=== PATIENT | male | born 1960 ===

== ENCOUNTER → 2017-05-18 | Outpatient (CLI) | payer BC ==
[~2017-05-18] MED LIST: APIX1TAB3 PO; DILT240C74 PO; TPRSR/50 PO
[2017-05-18 13:01] LABS: BASO % 0.6 %; BASO ABS # 0.04 K/uL (0-0.2); COMPLETE YES; EOS % 3.3 %; IG% 0.5 %; LYMPH % 32.1 %; LYMPH ABS # 2.02 K/uL (1.2-3.4); MEAN CELL VOLUME 90.4 fL (80-100); MEAN CORPUSCULAR HEMOGLOBIN 31.7 pg (25-34); MEAN CORPUSCULAR HGB CONC 35.1 g/dl (32-36); MEAN PLATELET VOLUME 10.5 fL (7.4-10.4); MONO % 10.8 %; NEUT % 52.7 %; PLATELET COUNT 223 K/uL (130-400); RED BLOOD COUNT 4.98 M/uL (4.7-6.1)
[2017-05-18 13:54] LABS: ALT/SGPT 42 U/L (12-78); BLOOD UREA NITROGEN 14 mg/dl (7-18); BUN/CREATININE RATIO 13.2 (10-20); CALCIUM 8.9 mg/dl (8.5-10.1); CARBON DIOXIDE 25 mmol/L (21-32); CHLORIDE 108 mmol/L (98-107); CHOLESTEROL 144 mg/dl (0-200); CREATININE 1.07 mg/dl (0.60-1.40); GLUCOSE 97 mg/dl (70-99); POTASSIUM 4.2 mmol/L (3.5-5.1); SODIUM 141 mmol/L (136-145)
[2017-05-18 13:59] LABS: ALB/GLOB RATIO 1.2 (0.9-2); ALKALINE PHOSPHATASE 91 U/L (45-117); AST/SGOT 23 U/L (15-37); CHOLESTEROL/HDL RATIO 3.3; HDL CHOLESTEROL 43 mg/dl; LDL CHOLESTEROL CALCULATED 78 mg/dl; TRIGLYCERIDES 114 mg/dl (0-150); VERY LOW DENSITY LIPOPROT CALC 23 mg/dl
== END | disposition home or self-care (01) ==
LOC: C.LABSPEC 12:27
PROVIDERS: ATTEND Family Medicine
DX: E78.2 Mixed hyperlipidemia (principal); Z12.5 Encounter for screening for malignant neoplasm of prostate; I48.2 Chronic atrial fibrillation

== ENCOUNTER 2022-01-02 05:15 | Observation (INO) ==
--- NOTE | 2021-12-04 13:52 | PAT Medication Instructions ---
Medication Instructions Date of Service December 04, 2021 Home Medications Medication Instructions Recorded apixaban 5 mg tablet (Eliquis) 5 mg PO BID #180 tab 11/03/21 pravastatin 80 mg tablet 80 mg PO QPM apixaban 5 mg tablet (Eliquis) 5 mg PO BID diltiazem HCl 360 mg capsule,extended release 24 hr 360 mg PO QAM metoprolol succinate 100 mg tablet,extended release 24 hr 100 mg PO QAM ASK your prescriber and surgeon apixaban 5 mg tablet (Eliquis) 5 mg PO BID (in order for spinal anesthesia, Apixaban/Eliquis needs to be stopped 72 hours before surgery. Please check if okay with doctor that prescribes this to you) Take morning of surgery With a small sip of water, OTHERWISE NOTHING TO EAT OR DRINK AFTER MIDNIGHT: diltiazem HCl 360 mg capsule,extended release 24 hr 360 mg PO QAM metoprolol succinate 100 mg tablet,extended release 24 hr 100 mg PO QAM Take evening before surgery pravastatin 80 mg tablet 80 mg PO QPM Other Notes If you have any questions please call us at [phone] or [phone] or [phone] or [phone]
--- NOTE | 2021-12-08 08:58 | Anesthesiology Consultation ---
Date of Service December 08, 2021 Assessment & Plan (1) Encounter for pre-operative examination: - Case discussed in detail with Dr. Rick including abnormal pre-op EKG and new changes vs 2014 ECG. He advised nothing further is needed prior to surgery and pt is acceptable risk to proceed. - cardiology 01/21/21 [place]: "...Chronic and permanent atrial fibrillation. Controlled ventricular response...remains asymptomatic. Chronic anticoagulation with apixaban. No bleeding complaints on it...Moderate mitral regurgitation. No signs or symptoms heart failure. Most recent echo with moderate MR, normal LV size, nl LV systolic function, and nl est right heart pressures. Echocardiogram last year with normal LV size and systolic function...yearly echocardiogram. Reassess mitral regurgitation, LV size, LV systolic function. Will perform at [facility]...Follow-up visit with me in 1 year..." - COVID screening: Per assessment on 12/08/2021: Travel screen negative, no known COVID-19 positive contacts or current COVID-19 related symptoms in past 2 weeks. Pt vaccinated. Surgeon arranging preop COVID testing, scheduled 12/31/2021. Awaiting results. Chart Review Chart Review: Acceptable Risk for Surgery and Patient seen in Pre Admission Testing Teaching & Discussion Pre-Anesthesia Teaching/Discussion Notes: Instructed NPO after midnight before surgery, except medications with 15 cc of water. Medication instructions provided according to the PAT guidelines. History Surgery Operation Date: 01/02/22 09:20 Proposed Procedures p Left Anterior Total Hip Arthroplasty - Nicholas Hensley, Height/Weight Height: 6 ft 2 in Weight: 115.5 kg Allergies Allergy/AdvReac Type Severity Reaction Status Date / Time No Known Drug Allergies Allergy Verified 12/04/21 11:55 Medications Home Medications Medication Instructions Recorded Confirmed Last Taken pravastatin 80 mg tablet 80 mg PO QPM 04/25/19 12/04/21 Unknown apixaban 5 mg tablet (Eliquis) 5 mg PO BID #180 tab 11/03/21 12/04/21 Unknown diltiazem HCl 360 mg 360 mg PO QAM 12/04/21 12/04/21 Unknown capsule,extended release 24 hr metoprolol succinate 100 mg 100 mg PO QAM 12/04/21 12/04/21 Unknown tablet,extended release 24 hr Past Medical History Medical History (Updated 12/08/21 @ 09:35 by Candace Adair PA-C) Chronic anticoagulation due to atrial fib Chronic atrial fibrillation dx 8 yrs ago follow with dr Dunlap Dyslipidemia Moderate mitral regurgitation follows with Dr. Dunlap Patient denies h/o stroke, seizures, heart attack, heart failure, DM, HTN, blood clots or blood transfusions. Exercise / Class Metabolic Activity II 4-5 Yardwork/Stairs/Walk up hill (denies CP or SOB with 1 FOS) Past Surgical History Surgical History Hx of colonoscopy Hx of left inguinal hernia repair Hx of right inguinal hernia repair Past Anesthesia History No Hx of Anesthesia Complications and No Family Hx of Anesthesia Complications History of PONV No Hx of PONV and No Hx of Motion Sickness Social History Smoking Status: Never smoker Do You Dip or Chew Tobacco: No Hx Alcohol Use: No Hx Substance Use: No substance use type: does not use Review of Systems Patient denies chest pain, shortness of breath, dyspnea on exertion, snoring, witnessed apneas, reflux, fever, chills, cough, wheezing, or palpitations. Physical Exam Vital Signs Vitals BP 121/84 P 86 TEMP 97.6 SP02 98% on RA RESP 17 Physical Full cervical extension range of motion without pain TMD 3.5 finger breaths Dentition: intact, denies missing, chipped or loose teeth, caps/crowns, implants or bridges Lungs: normal respiratory effort. Clear throughout to auscultation, no adventitious breath sounds Cardiac: regular rate and rhythm, no murmurs noted Carotid arteries: negative bruit bilat Lab Results Anesthesia Preop Results Results Anesthesia Widget: WBC 5.83 K/uL (4.8-10.8) 12/08/21 Hgb 15.2 g/dL (14.0-18.0) 12/08/21 Hct 43.8 % (42-52) 12/08/21 Plt 246 K/uL (130-400) 12/08/21 Na 141 mmol/L (136-145) 12/08/21 K 4.5 mmol/L (3.5-5.1) 12/08/21 Cl 109 mmol/L (98-107) H 12/08/21 CO2 26 mmol/L (21-32) 12/08/21 BUN 17 mg/dl (6-23) 12/08/21 Creat 0.96 mg/dl (0.6-1.4) 12/08/21 Glucose Level 103 mg/dl (70-99(Fasting)) H 12/08/21 PT 11.2 Seconds (9.0-12.0) 12/08/21 PTT 29.6 Seconds (21.0-31.0) 12/08/21 INR 1.1 (0.9-1.1) 12/08/21 Blood Type O Positive 12/08/21 Antibody Screen NEGATIVE 12/08/21 Testing Electrocardiogram Date: 12/08/21 Atrial fibrillation, rate 77 bpm Inferior infarct, age undetermined Inferior infarct now present vs 02/02/2014 ECG Chest X-Ray Date: 12/08/21 Frontal and lateral radiographs of the chest demonstrate the cardiomediastinal silhouette to be within normal limits. The lungs are clear of alveolar opacities. There is no evidence for effusion bilaterally. There is no evidence for vascular congestion. There is no acute osseous pathology. IMPRESSION: 1. No acute cardiopulmonary disease. Echocardiogram Date: 01/24/21 EF 60-65% No regional wall motion abnormalities Biatrial dilatation Mild cLVH Moderate mitral regurgitation Mild tricuspid regurgitation Normal estimated right heart pressures
--- NOTE | 2022-01-01 07:35 | History & Physical Report ---
Date of Service January 01, 2022 Assessment & Plan (1) Osteoarthritis of left hip: We will proceed with a left anterior total of arthroplasty. Postoperatively he will be started on Eliquis for DVT prophylaxis and kept overnight in the hospital for postop medical management. He plans to have the hospital set up home health upon discharge. History of Present Illness Chief Complaint: Osteoarthritis of the left hip. Primary Care Provider: Tyrese Gabriel DO Rob is apleasant 61-year-old male who I saw in the past and diagnosed with osteoarthritis of his left hip. He had an intra-articular hip injection. It did help some. Unfortunately, his symptoms have continued to worsen. He is having trouble walking. He is having trouble gettingin and out of his car and putting on shoes. After failing conservative treatment, he has elected proceed with a left anterior total hip arthroplasty. Allergies Allergy/AdvReac Type Severity Reaction Status Date / Time No Known Drug Allergies Allergy Verified 12/04/21 11:55 Home Medications Medication Instructions Recorded Confirmed Type pravastatin 80 mg tablet 80 mg PO QPM 04/25/19 12/04/21 History apixaban 5 mg tablet (Eliquis) 5 mg PO BID #180 tabs 11/03/21 12/04/21 Rx diltiazem HCl 360 mg 360 mg PO QAM 12/04/21 12/04/21 History capsule,extended release 24 hr metoprolol succinate 100 mg 100 mg PO QAM 12/04/21 12/04/21 History tablet,extended release 24 hr Past Med/Surg History Medical History Chronic anticoagulation due to atrial fib Chronic atrial fibrillation dx 8 yrs ago follow with dr Dunlap Dyslipidemia Moderate mitral regurgitation follows with Dr. 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 Physical Exam On physical examination of the left hip, he walks with an antalgic gait. He has decreased range of motion and pain with forced internal and external rotation.. Constitutional WD/WN, vitals as above Respiratory normal respiratory effort, lungs clear to auscultation Cardiovascular RRR, no murmur, no edema Neurologic patellar DTR's 2+ bilat, sensation intact Results & Data Results & Data Laboratory Results . Diagnostic Findings X-rays of the left hip show advanced osteoarthritis with joint space narrowing osteophyte formation and [id number] articulation.. PG Care Time/CCT Total # of Minutes Spent Total Time Spent with Patient: Total time spent is greater than 50% in coordination of care (as documented) at patient's floor/unit and/or counseling patient: Coding Level of Care Code None Diagnoses Osteoarthritis of left hip M16.12
[~2022-01-02 05:15] MED LIST changes: -APIX1TAB3 PO; -DILT240C74 PO; +Ketorolac (*for OR use only*) 30 MG, dexAMETHasone 4 MG, KETAMINE HCL (**OR use only) 1... INFIL SCH; -TPRSR/50 PO
[2022-01-02] MEDS ORDERED: BUPIVACAINE LIPOSOME/PF 266 MG, BUPIVACAINE/EPINEPHRINE 50 ML, SODIUM CHLORIDE 0.9% 30 ... INFIL SCH (06:00)
[2022-01-02] MEDS ORDERED: TRANEXAMIC ACID 1,000 MG **IV Pre-op IV SCH (06:00)
[2022-01-02] MEDS ORDERED: ceFAZolin 2000MG 2,000 MG/15 ML SYR IV SCH (06:00)
[2022-01-02] MEDS ORDERED: LR 500ML BOLUS, THEN 15ML/HR IV SCH (06:00)
[2022-01-02] MEDS ORDERED: LR 60ML/HR IV SCH (06:00)
[2022-01-02] MEDS ORDERED: TRANEXAMIC ACID 1,000 MG **IV Intra-op IV SCH (06:00)
[2022-01-02] MEDS ORDERED: GABAPENTIN 600 MG DOSE PO SCH (06:00)
[2022-01-02] MEDS ORDERED: Ketorolac (*for OR use only*) 30 MG, dexAMETHasone 4 MG, KETAMINE HCL (**OR use only) 1... INFIL SCH (06:00)
[2022-01-02] MEDS ORDERED: ACETAMINOPHEN 500 MG TAB PO SCH (06:00)
[2022-01-02] MEDS ORDERED: BUPIVACAINE 0.5 % 5 MG/1 ML PF 10ML VIAL ONE (06:35)
[2022-01-02] MEDS ORDERED: ONDANSETRON INJ 2 MG/ML 2 ML VIAL ONE (06:36)
[2022-01-02] MEDS ORDERED: MIDAZOLAM HCL 1 MG/ML 2ML VIAL ONE (06:36)
[2022-01-02] MEDS ORDERED: LIDOCAINE 2% 20 MG/ML 5 ML SYR IV ONE (06:36)
[2022-01-02] MEDS ORDERED: PROPOFOL IV EMULSION 10 MG/ML 20 ML VIAL IV ONE ×2 (06:36→08:16)
[2022-01-02] MEDS ORDERED: LIDOCAINE 2% MPF LOCAL 5 ML VIAL INFIL ONE (06:36)
[2022-01-02] MEDS ORDERED: ePHEDrine sulfate 50 MG/ML AMP IV PRN (06:39)
[2022-01-02] MEDS ORDERED: fentaNYL citrate 100 MCG/2 ML VIAL IV PRN (06:39)
[2022-01-02] MEDS ORDERED: ONDANSETRON INJ 2 MG/ML 2 ML VIAL IV PRN ×2 (06:39→11:08)
[2022-01-02] MEDS ORDERED: ATROPINE SULFATE 0.1 MG/ML 10ML SYR IV PRN (06:39)
[2022-01-02] MEDS ORDERED: fentaNYL citrate 100 MCG/2 ML VIAL ONE (06:41)
--- NOTE | 2022-01-02 06:42 | History & Physical Bridge Note ---
Date of Service January 02, 2022 History & Physical Bridge Note I have examined the patient, reviewed the History & Physical and in the interval since the performance of the History & Physical I have noted the following changes of clinical significance: no changes noted
[2022-01-02] MEDS ORDERED: ORTHO JOINT ANESTHETIC ONE (06:48)
[2022-01-02] MEDS ORDERED: ePHEDrine sulfate 50 MG/ML AMP ONE (08:07)
[2022-01-02] MEDS ORDERED: PHENYLEPHRINE 100MCG/ML 5ML SYR ONE (08:07)
[2022-01-02] MEDS ORDERED: PHENYLEPHRINE HCL 10 MG/ML VIAL ONE (08:07)
--- NOTE | 2022-01-02 08:17 | Operative Report ---
PG Post Operative Report Pre & Post Diagnosis Operation Date: 01/02/22 07:00 Pre-Op Diagnosis: Degenerative Joint Disease Left Hip Post-Op Diagnosis: Degenerative Joint Disease Left Hip I identified the patient and participated in the time-out.: Yes Procedure Operation Date: 01/02/22 07:00 Actual Procedures p Left Anterior Total Hip Arthroplasty(Left) - Nicholas Hensley DO Surgeon Nicholas Hensley DO Speed Reading Teacher Nicholas Diane PA-C Estimated Blood Loss 300 Findings Consistent with Post-Op Diagnosis As above Specimens None Description of Procedure Implants used I used a ZimmerBiomet total hip arthroplasty system with a size 6 high offset Avenir Complete stem, a 54 mm G7 cup with a 25mm screw, an E1 polyethylene liner, a 40 mm ceramic head with a +3.5 neck. Rob arrived at the hospital for the above procedure. He was seen in the preoperative holding area and the operative extremity was identified and signed. He was given a spinal anesthetic, a preoperative antibiotic, and TXA. He was then taken back to the operating room and laid on the table in the supine position. He was given basic sedation. The operative leg was secured to a Puristst leg positioner. The hip was then prepped and draped in sterile fashion. A timeout was done and the patient and the operative extremity was pr operly identified. An anterior approach was used. Dissection was taken down through the fascia and the tensor muscle belly was retracted laterally and the rectus was retracted medially. The circumflex vessels were identified and ligated. The capsule was then incised and tagged for later repair. The femoral neck was then cut and the femoral head was removed. The acetabulum was exposed. Time was spent doing a complete circumferential labral release. Sequential reaming of the acetabulum up to a size 53 reamer was done. Final reamings were done under fluoroscopy to ensure appropriate version. A Biomet 54 mm G7 cup was then impacted into place. A single 25 mm screw was placed. The E1 polyethylene liner was then snapped into place. Surrounding soft tissues were then injected with 100 cc of an orthopedic pain control cocktail. The proximal femur was then exposed. Sequential broaching up to a size 6 broach was done. Off that broach a size 40 head with a +3.5 neck was trialed. The hip was reduced and fluoroscopic images showed anatomic alignment of the implants in acceptable length. The broach was removed. The final size 6 high offset Avenir Complete stem was then impacted into place. A ceramic 40 mm head with a +3.5 neck was then impacted onto the stem and the hip was reduced. Final fluoroscopic images showed anatomic alignment of the hip. The capsule was then closed with #1 Vicryl suture. A dilute betadyne lavage was then done for 3 minutes. The joint was then irrigated with normal saline solution. The fascia was closed with #1 PDS suture. Skin was closed with 2-0 Vicryl, jade, and a Silverlon dressing. He was then transferred to a hospital bed and taken to the post anesthesia care unit in stable condition. He tolerated the procedure well. Nicholas Diane PA-C, was present for the entire procedure. He was critical for patient positioning, prepping, draping, retraction exposure, wound closure and application of sterile dressing. I attest to the content of the Intraoperative Record and any orders documented therein. Any exceptions are noted below.
--- NOTE | 2022-01-02 08:35 | Fluoroscopy Report ---
FL hip LT 1V CLINICAL HISTORY: Left anterior total hip arthroplasty COMPARISON STUDY: None. FLUOROSCOPY TIME: 23 seconds. FINDINGS: 2 fluoroscopic spot images of the left hip demonstrate a left total hip arthroplasty. The h ardware appears intact. No fracture or dislocation. IMPRESSION: Fluoroscopic assistance provided for left total hip arthroplasty. ACT 112: Negative or not required by law. Electronically signed by: Chandler Mejia M.D. 01/02/2022 8:34 AM
--- NOTE | 2022-01-02 09:44 | XRay Report ---
XR hip 1V LT w pelvis CLINICAL HISTORY: IN PACU - A/P PELVIS and LATERAL HIP TECHNIQUE: 2 views of the right hip and single frontal view of the pelvis were obtained. Comparison: Comparison is made to left hip radiograph 10/21/2021 FINDINGS: Patient is status post total hip arthroplasty with expected postsurgical changes including soft tissu e swelling, subcutaneous emphysema, and surgical staple placement. No periarticular lucency or hardwa re fracture is seen. A bone fragment lateral to the acetabulum is unchanged from prior exam. No perih ardware lucency or hardware fracture is seen. Phleboliths are noted in the pelvis. IMPRESSION: Expected postoperative appearance status post placement of total hip arthroplasty. ACT 112: Negative or not required by law. Electronically signed by: Chidi Houston M.D. 01/02/2022 9:42 AM
[2022-01-02] MEDS ORDERED: METOCLOPRAMIDE HCL INJ 5 MG/ML 2 ML VIAL IV PRN (11:08)
[2022-01-02] MEDS ORDERED: NALOXONE HCL 0.4 MG/1 ML VIAL/CARP IV PRN (11:08)
[2022-01-02] MEDS ORDERED: HYDROmorphone INJ 0.5 MG/0.5 ML SYR IV PRN (11:08)
[2022-01-02] MEDS ORDERED: MAGNESIUM HYDROXIDE SUSP 30 ML UDC PO PRN (11:08)
[2022-01-02] MEDS ORDERED: oxyCODONE HCL IR 5 MG TAB (IMMEDIATE RELEASE) PO PRN (11:08)
[2022-01-02] MEDS ORDERED: bisacodyL 10 MG SUPP PR PRN (11:08)
--- NOTE | 2022-01-02 11:20 | Anesthesiology Progress Note ---
Date of Service January 02, 2022 Anesthesia Post Procedure Vital Signs Vital Signs: Temp Pulse Pulse Resp BP BP Pulse Ox 01/02/22 11:00 97.5 F L 76 17 100/72 97 01/02/22 10:45 72 16 97/71 L 95 01/02/22 10:30 68 12 99/70 L 95 01/02/22 10:15 81 14 95/72 L 96 01/02/22 10:00 67 12 91/67 L 94 01/02/22 09:45 71 14 92/61 L 92 01/02/22 09:30 97.0 F L 77 14 98/59 L 97 01/02/22 09:20 76 16 96/68 L 96 01/02/22 09:10 67 15 90/55 L 95 01/02/22 09:00 66 17 94/53 L 92 01/02/22 08:50 81 18 90/60 L 98 01/02/22 08:40 98.4 F 83 14 91/65 L 97 01/02/22 05:39 98.2 F 83 18 127/83 95 O2 Del Method O2 Flow Rate 01/02/22 11:00 Room Air 01/02/22 10:45 Room Air 01/02/22 10:30 Room Air 01/02/22 10:15 Room Air 01/02/22 10:00 Room Air 01/02/22 09:45 Room Air 01/02/22 09:30 Room Air 01/02/22 09:20 Room Air 01/02/22 09:10 Room Air 01/02/22 09:00 Room Air 01/02/22 08:50 Oxymask 5 01/02/22 08:40 Oxymask 8 01/02/22 05:39 Room Air Pain Intensity Left Hip: Pain Intensity: 0 Transfer of Care Handoff Completed per policy Notes Mental Status: alert / awake / arousable and participated in evaluation Patient Amnestic to Procedure: Yes Nausea / Vomiting: adequately controlled Pain: adequately controlled Airway Patency, RR, SpO2: stable & adequate BP & HR: stable & adequate Hydration State: stable & adequate Neuraxial Anesthesia: was administered and sensory block is resolving Anesthetic Complications: no major complications apparent and Pt Satisfied with anesthetic care
[2022-01-02] MEDS: ASPIRIN 81 MG ECTAB PO SCH ×2 (14:07→21:06)
[2022-01-02] MEDS: DOCUSATE SODIUM 100 MG CAP PO SCH ×2 (14:09→21:06)
[2022-01-02] MEDS: dilTIAZem HCL 180 MG CAPCR PO SCH (14:09)
[2022-01-02] MEDS: KETOROLAC 30 MG/ML VIAL IV SCH ×3 (14:09→23:14)
[2022-01-02] MEDS: METOPROLOL SUCC 50MG EXT REL TAB PO SCH (14:10)
[2022-01-02] MEDS: MULTIVITAMIN TAB PO SCH (14:11)
[2022-01-02] MEDS: ACETAMINOPHEN 500 MG TAB PO SCH ×2 (14:12→21:06)
[2022-01-02] MEDS: ceFAZolin 2000MG 2,000 MG/15 ML SYR IV SCH ×2 (18:02→23:14)
[2022-01-02] MEDS: SODIUM CHLORIDE 0.9% 1000ML 1,000 ML IV SCH ×2 (19:09→21:07)
[2022-01-02] MEDS ORDERED: SENNA 8.6 MG TAB PO SCH (21:00)
[2022-01-02] MEDS ORDERED: PRAVASTATIN SOD 40 MG TAB PO SCH (21:00)
[2022-01-03] MEDS: KETOROLAC 30 MG/ML VIAL IV SCH ×2 (05:52→11:04)
[2022-01-03] MEDS: ACETAMINOPHEN 500 MG TAB PO SCH (05:52)
--- NOTE | 2022-01-03 06:50 | Orthopedic Progress Note ---
Date of Service January 03, 2022 Assessment & Plan (1) Status post left hip replacement: Overall is doing well. Is not any much pain in the left hip. He will be seen by physical therapy today for ambulation and range of motion exercises. He is on Eliquis for DVT prophylaxis. He can be discharged home later today. He will follow-up with orthopedics in 2 weeks. Rin Rivas was seen and examined at bedside this morning. Overall is doing very well. Is not having much pain in the left hip. He has been up and ambulating to the bathroom. He has no complaints.. Review of Systems All systems reviewed & are unremarkable except as noted in HPI & below. Physical Exam On physical examination of the left hip, the dressing is clean and dry. His leg is out full extension. He has active dorsiflexion plantarflexion of the left ankle.. Results & Data Results & Data Laboratory Results . Diagnostic Findings Postoperative x-rays of the left hip show the prosthesis to be in anatomic alignment without any evidence of fracture, desiccation, or loosening. PG Care Time/CCT Total # of Minutes Spent Total Time Spent with Patient: Total time spent is greater than 50% in coordination of care (as documented) at patient's floor/unit and/or counseling patient: Coding Level of Care Code 01617 Post Operative Follow-Up Diagnoses Status post left hip replacement Z96.642
--- NOTE | 2022-01-03 06:51 | Discharge Summary ---
Date of Service January 03, 2022 Admission HPI (Per Admitting) Rob is apleasant 61-year-old male who I saw in the past and diagnosed with osteoarthritis of his left hip. He had an intra-articular hip injection. It did help some. Unfortunately, his symptoms have continued to worsen. He is having trouble walking. He is having trouble gettingin and out of his car and putting on shoes. After failing conservative treatment, he has elected proceed with a left anterior total hip arthroplasty. Admission Exam (Per Admitting) On physical examination of the left hip, he walks with an antalgic gait. He has decreased range of motion and pain with forced internal and external rotation.. Principal Diagnosis Same as "Discharge Diagnosis" noted below under Discharge Instructions. Discharge Exam On physical examination of the left hip, the dressing is clean and dry. His leg is out full extension. He has active dorsiflexion plantarflexion of the left ankle.. Discharge Data Procedures Performed Operation Date: 01/02/22 07:00 Actual Procedures p Left Anterior Total Hip Arthroplasty(Left) - Nicholas Hensley DO Ordered Studies 01/02/22 FL hip LT 1V Routine Hospital Course (1) Status post left hip replacement: On January 02 Rob arrived to [facility] and underwent a left hip replacement without complication. He had a spinal anesthetic. Postoperatively he was started on Eliquis for DVT prophylaxis and transferred to the general orthopedic floors. His hospital course was uneventful. On postop day #1, his vital signs were stable and his pain was uncontrolled. He was able to participate well with physical therapy doing ambulation and range of motion exercises. He was then discharged home. He will follow-up with orthopedics in 2 weeks. PG Care Time/CCT Total # of Minutes Spent Total Time Spent with Patient: Total time spent is greater than 50% in coordination of care (as documented) at patient's floor/unit and/or counseling patient: Discharge Plan Discharge Items Patient Disposition: Home - Home Health Services Reason For Visit: Degenerative Joint Disease Left Hip Discharge Diagnosis: Left hip replacement Activity: Per Instructions section Non-emergency contact: Surgeon Call non-emergency contact if: your wound has increased redness and your wound has increased drainage Follow-up/Referrals: Tyrese Gabriel DO [Primary Care Provider] - Diet: Regular Addtl Attending Provider Instructions: Activity and Therapy Recommendations: * If you are using [facility] then therapy will be provided at your home until they feel you have accomplished all of your goals. * If you are using [facility] then Physical Therapy will be provided until they feel you are ready to start Outpatient Physical Therapy. * If you are not using home therapy then Outpatient Physical Therapy should start about 3-5 days from your day of surgery. Therapy will last about 6-10 weeks * You were shown a series of exercises in the hospital. Do these exercises three times each day including the exercises you were shown in physical therapy. * Get up and walk several times each day.~ For the first four weeks, try not to stand or walk for more than one hour at a time. If you do stand or walk for more than one hour, you will not hurt anything, but your leg will likely swell.~~ * As you feel comfortable, you may change from the walker or crutches to a cane and~then to independent walking. Medications: * Narcotic You will likely be sent home from the hospital with a prescription for the narcotic pain medication that worked best throughout your stay. * Aspirin Most patients will be required to take Aspirin 81mg twice a day for 6 weeks after surgery. This is obtained [id number] and a prescription is not necessary. * Other medications may be prescribed for specific circumstances. If you have any questions, please call the office at . * Resume previous home medications unless otherwise instructed TEDs/Elastic Stockings: The white elastic stockings help limit swelling and prevent blood clots from forming in your legs. The more you wear them, the more they work. Wear them for six weeks. Dressing Care: Leave the Silverlon dressing in place for 7 days. After 7 days you may remove the dressing. If the incision is not draining then you may leave the jade open to air. If there is a little bit of drainage or if the jade are getting stuck on your clothing then cover the incision with a dry dressing. The jade will be removed at your 2 week follow-up appointment. Showering: You may shower with the Silverlon dressing in place. Do not let the shower spray hit the dressing directly. Pat the Silverlon dressing dry. If the dressing becomes wet underneath, then simply remove the dressing. Keep the incision dry until you are 7 days out from the day of surgery. After 7 days you may remove the Silverlon dressing and shower with the jade exposed. Let soapy water run over the jade and pat them dry. Do not scrub or soak the incision. Things To Watch For: * Drainage from the incision site that occurs more than one week after your surgery. * Increased redness at the incision site. * Fever above 102 degrees Fahrenheit. * Unusual chest pain or shortness of breath. * Call [facility] at with any of the above problems Follow-Up Visit: Follow-up with Dr. Hensley's PA (Nicholas Diane) 2-3 weeks after your day of surgery. He will remove your jade and answer any questions. If you have any additional questions or concerns, Dr Hensley is usually in the office at the same time and will be available An appointment was probably scheduled when you signed-up for surgery in the office. If you have any questions call Office Instructions: More detailed instructions as well as Frequently Asked Questions were provided in a folder by our office when you signed-up for surgery. Please review these instructions when you get home. If you have any further questions or concerns, please feel free to call the office at [phone] Pending Studies at Discharge: No Stand-Alone Forms: [facility], Smoking Cessation Medications and DC Order Prescriptions: New oxycodone-acetaminophen 5-325 mg tablet 1 tab PO Q6H PRN (Reason: pain) Qty: 30 0RF Continued Eliquis 5 mg tablet 5 mg PO BID Qty: 180 3RF Rx Instructions: hold 3 days prior pravastatin 80 mg tablet 80 mg PO QPM metoprolol succinate 100 mg tablet extended release 24 hr 100 mg PO QAM diltiazem HCl 360 mg capsule,extended release 24hr 360 mg PO QAM Discharge Orders: Discharge Order (Routine); Ordered 01/03/22 Ordered By: Nicholsa Hensley Admission Data Admit Date/Time: 01/02/22 08:40 Attending Provider: Nicholas Hensley Admit Provider: Nicholas Hensley Primary Care Provider: Tyrese Gabriel
[2022-01-03] MEDS ORDERED: dexAMETHasone 4 MG TAB PO SCH (08:00)
[2022-01-03] MEDS: MULTIVITAMIN TAB PO SCH (08:49)
[2022-01-03] MEDS: dilTIAZem HCL 180 MG CAPCR PO SCH (08:50)
[2022-01-03] MEDS: APIXABAN 5 MG TABLET PO SCH ×2 (08:51→08:53)
[2022-01-03] MEDS: METOPROLOL SUCC 50MG EXT REL TAB PO SCH (08:51)
[2022-01-03] MEDS: DOCUSATE SODIUM 100 MG CAP PO SCH (08:52)
[2022-01-03] MEDS: ASPIRIN 81 MG ECTAB PO SCH (08:53)
== END 2022-01-03 11:29 | disposition home health service (06) ==
LOC: ASU 05:15 → PACUINP 05:15 → 3E 11:50
DX: Z79.899 Other long term (current) drug therapy; Z79.01 Long term (current) use of anticoagulants; I48.20 Chronic atrial fibrillation, unspecified; E78.5 Hyperlipidemia, unspecified; M65.9 Synovitis and tenosynovitis, unspecified; M16.12 Unilateral primary osteoarthritis, left hip; M25.752 Osteophyte, left hip

== ENCOUNTER 2023-09-13 06:40 | Observation (INO) ==
--- NOTE | 2023-08-25 13:34 | PAT Medication Instructions ---
Medication Instructions Date of Service August 25, 2023 Home Medications Medication Instructions Recorded apixaban 5 mg tablet (Eliquis) 5 mg PO BID #180 tabs 01/08/23 diltiazem HCl 360 mg 360 mg PO QAM #90 caps 02/23/23 capsule,extended release 24 hr metoprolol succinate 100 mg 100 mg PO QAM #90 tabs 02/23/23 tablet,extended release 24 hr apixaban 5 mg tablet (Eliquis) 5 mg PO BID diltiazem HCl 360 mg capsule,extended release 24 hr 360 mg PO QAM metoprolol succinate 100 mg tablet,extended release 24 hr 100 mg PO QAM atorvastatin 40 mg tablet 40 mg PO HS ASK your prescriber and surgeon apixaban 5 mg tablet (Eliquis) 5 mg PO BID (in order to get spinal anesthesia- will need to hold Eliquis/apixaban at least 72 hours prior to surgery) Take morning of surgery With a small sip of water, OTHERWISE NOTHING TO EAT OR DRINK AFTER MIDNIGHT: diltiazem HCl 360 mg capsule,extended release 24 hr 360 mg PO QAM metoprolol succinate 100 mg tablet,extended release 24 hr 100 mg PO QAM Take evening before surgery atorvastatin 40 mg tablet 40 mg PO HS Other Notes If you have any questions please call us at [phone] or [phone] or [phone] or [phone]
--- NOTE | 2023-08-30 08:23 | Anesthesiology Consultation ---
Date of Service August 30, 2023 Assessment & Plan (1) Encounter for pre-operative examination: - Outpatient joint assessment: Patient is currently scheduled for inpatient pathway. If re-evaluated and patient/surgeon requests outpatient pathway, patient is acceptable candidate for outpatient joint program from anesthesia standpoint pending surgeon's office assessment of pt motivation/support/completion of same day joint program preop requirements. Chart Review Chart Review: Acceptable Risk for Surgery and Patient seen in Pre Admission Testing Teaching & Discussion Pre-Anesthesia Teaching/Discussion Notes: Instructed NPO after midnight before surgery, except medications with 15 cc of water. Medication instructions provided according to the PAT guidelines. History Surgery Operation Date: 09/13/23 12:55 Proposed Procedures p Right Anterior Total Hip Arthroplasty - Nicholas Hensley DO Height/Weight Height: 6 ft 2 in Weight: 125.9 kg Allergies Allergy/AdvReac Type Severity Reaction Status Date / Time No Known Drug Allergies Allergy Verified 08/25/23 13:14 Medications Home Medications Medication Instructions Recorded Confirmed Last Taken apixaban 5 mg tablet (Eliquis) 5 mg PO BID #180 tabs 01/08/23 08/25/23 Unknown diltiazem HCl 360 mg 360 mg PO QAM #90 caps 02/23/23 08/25/23 Unknown capsule,extended release 24 hr metoprolol succinate 100 mg 100 mg PO QAM #90 tabs 02/23/23 08/25/23 Unknown tablet,extended release 24 hr atorvastatin 40 mg tablet 40 mg PO HS 08/25/23 08/25/23 Unknown Past Medical History Medical History Chronic anticoagulation due to atrial fib Chronic atrial fibrillation dx ~[address] Dunlap Dyslipidemia History of cardioversion ~ at [facility] Moderate mitral regurgitation follows with Dr. Dunlap Patient denies h/o stroke, seizures, heart attack, heart failure, DM, HTN, blood clots/DVTs or blood transfusions. Exercise / Class Metabolic Activity II 4-5 Yardwork/Stairs/Walk up hill (denies chest discomfort or shortness of breath with 1 FOS) Past Family History Family History Other No family history of adverse response to anesthesia Past Surgical History Surgical History History of left hip replacement (2021) Hx of colonoscopy Hx of left inguinal hernia repair Hx of right inguinal hernia repair Past Anesthesia History No Hx of Anesthesia Complications and No Family Hx of Anesthesia Complications History of PONV No Hx of PONV and No Hx of Motion Sickness Social History Smoking Status: Never smoker Do You Dip or Chew Tobacco: No Hx Alcohol Use: Yes alcohol intake frequency: a few times a month Hx Substance Use: No substance use type: does not use Review of Systems Patient denies chest pain, shortness of breath, dyspnea on exertion, snoring, witnessed apneas, reflux, fever, chills, cough, wheezing, or palpitations. Physical Exam Vital Signs Vitals BP 126/86 P 87 TEMP 98.2 SP02 96% on RA RESP 18 Physical Patient resting comfortably in chair in no acute distress, alert and oriented, responding appropriately throughout visit Full cervical extension range of motion without pain TMD 3.5 finger breadths Mallampati Score 2 Dentition: intact, denies chipped or loose teeth, caps/crowns, implants or bridges Lungs: normal respiratory effort. Good air movement, clear throughout to aus cultation, no adventitious breath sounds Cardiac: regular rate and rhythm, no murmurs noted Carotid arteries: negative bruit bilat Lab Results Anesthesia Preop Results Results Anesthesia Widget: WBC 6.70 K/ul (4.8-10.8) 08/30/23 Hgb 15.8 g/dl (14.0-18.0) 08/30/23 Hct 45.2 % (42.0-52.0) 08/30/23 Plt 234 K/uL (130-400) 08/30/23 Na 140 mmol/L (136-145) 08/30/23 K 4.4 mmol/L (3.5-5.1) 08/30/23 Cl 107 mmol/L (98-107) 08/30/23 CO2 26 mmol/L (21-32) 08/30/23 BUN 18 mg/dl (6-23) 08/30/23 Creat 1.08 mg/dl (0.6-1.4) 08/30/23 Glucose Level 104 mg/dl (70-99(Fasting)) H 08/30/23 PT 10.9 Seconds (9.0-12.0) 08/30/23 PTT 30 Seconds (21-31) 08/30/23 INR 1.0 (0.9-1.1) 08/30/23 Blood Type O Positive 08/30/23 Antibody Screen NEGATIVE 08/30/23 Testing Electrocardiogram Date: 08/30/23 Afib, rate 81 bpm Inferior infarct-no significant change vs 12/08/21 Chest X-Ray Date: 08/30/23 No acute process. Echocardiogram Date: 02/16/23 EF 55-60% No LV regional wall motion abnormalities Mild LVH Moderate LA dilatation Mild RA dilatation Moderate mitral regurgitation Mild tricuspid regurgitation
[~2023-09-13 06:40] MED LIST changes: +BUPIVACAINE 0.5 % 5 MG/1 ML PF 10ML VIAL ONE; -Ketorolac (*for OR use only*) 30 MG, dexAMETHasone 4 MG, KETAMINE HCL (**OR use only) 1... INFIL SCH
--- NOTE | 2023-09-13 06:42 | History & Physical Bridge Note ---
Date of Service September 13, 2023 History & Physical Bridge Note I have examined the patient, reviewed the History & Physical and in the interval since the performance of the History & Physical I have noted the following changes of clinical significance: no changes noted
[2023-09-13] MEDS ORDERED: MIDAZOLAM HCL 1 MG/ML 2ML VIAL ONE (07:06)
[2023-09-13] MEDS ORDERED: fentaNYL citrate PF 100 MCG/2 ML VIAL ONE (07:06)
[2023-09-13] MEDS: GABAPENTIN 600 MG DOSE PO SCH (07:28)
[2023-09-13] MEDS: ACETAMINOPHEN 500 MG TAB PO SCH ×2 (07:28→13:22)
[2023-09-13] MEDS: FAMOTIDINE 20 MG TAB PO SCH (07:28)
[2023-09-13] MEDS: LR 500ML BOLUS, THEN 15ML/HR IV SCH (07:34)
[2023-09-13] MEDS: dexAMETHasone**PF** 10 MG/ML VIAL IV SCH (07:35)
[2023-09-13] MEDS ORDERED: HYDROmorphone INJ 2 MG/ML SYR/VIAL IV PRN (08:00)
[2023-09-13] MEDS ORDERED: ATROPINE SULFATE 0.1 MG/ML 10ML SYR IV PRN (08:00)
[2023-09-13] MEDS ORDERED: PROMETHAZINE HCL 6.25 MG in SODIUM CHLORIDE 0.9% 50 ML IV PRN (08:00)
[2023-09-13] MEDS ORDERED: ONDANSETRON INJ 2 MG/ML 2 ML VIAL IV PRN ×2 (08:00→12:37)
[2023-09-13] MEDS ORDERED: fentaNYL citrate PF 100 MCG/2 ML VIAL IV PRN (08:00)
[2023-09-13] MEDS: TRANEXAMIC ACID 1,000 MG **IV Pre-op IV SCH (08:02)
[2023-09-13] MEDS: ceFAZolin 2000MG 2,000 MG/15 ML SYR IV SCH (08:07)
[2023-09-13] MEDS: LR 60ML/HR IV SCH (08:22)
[2023-09-13] MEDS ORDERED: PHENYLEPHRINE HCL 10 MG/ML VIAL ONE (08:46)
[2023-09-13] MEDS ORDERED: PHENYLEPHRINE 100MCG/ML 10ML SYR IV ONE (08:46)
[2023-09-13] MEDS ORDERED: PROPOFOL IV EMULSION 10 MG/ML 20 ML VIAL IV ONE (08:46)
[2023-09-13] MEDS: ROPIV 0.5% 246mg, Ketorolac 30mg, EPINEPHrine 0.5mg in NSS INFIL SCH (08:51)
[2023-09-13] MEDS: ORTHO JOINT ANESTHETIC ONE (08:51)
[2023-09-13] MEDS: TRANEXAMIC ACID 1,000 MG **IV Intra-op IV SCH (09:35)
--- NOTE | 2023-09-13 09:41 | Operative Report ---
PG Post Operative Report Pre & Post Diagnosis Operation Date: 09/13/23 08:10 Pre-Op Diagnosis: Degenerative Joint Disease Right Hip Post-Op Diagnosis: Degenerative Joint Disease Right Hip I identified the patient and participated in the time-out.: Yes Procedure Operation Date: 09/13/23 08:10 Actual Procedures p Right Anterior Total Hip Arthroplasty(Right) - Nicholas Hensley DO Surgeon Nicholas Hensley DO [employer] Services Manager Franco Her PA-C Estimated Blood Loss 300 Findings Consistent with Post-Op Diagnosis Specimens Right femoral head Description of Procedure Implants used I used a [employer]immer[employer]omet total hip arthroplasty system with a size 6.5 high offset Avenir Complete stem, a 54 mm G7 cup with a 25mm screw, an E1 polyethylene liner, a 40 mm ceramic head with a -3.5 neck. Rob arrived at the hospital for the above procedure. He was seen in the preoperative holding area and the operative extremity was identified and signed. He was given a spinal anesthetic, a preoperative antibiotic, and TXA. He was then taken back to the operating room and laid on the table in the supine position. He was given basic sedation. The operative leg was secured to a Puristst leg positioner. The hip was then prepped and draped in sterile fashion. A timeout was done and the patient and the operative extremity was properly identified. An anterior approach was used. Dissection was taken down through the fascia and the tensor muscle belly was retracted laterally and the rectus was retracted medially. The circumflex vessels were identified and ligated. The capsule was then incised and tagged for later repair. The femoral neck was then cut and the femoral head was removed. The acetabulum was exposed. Time was spent doing a complete circumferential labral release. Sequential reaming of the acetabulum up to a size 53 reamer was done. Final reamings were done under fluoroscopy to ensure appropriate version. A Biomet 54 mm G7 cup was then impacted into place. A single 25 mm screw was placed. The E1 polyethylene liner was then snapped into place. Surrounding soft tissues were then injected with 100 cc of an or thopedic pain control cocktail. The proximal femur was then exposed. Sequential broaching up to a size 6.5 broach was done. Off that broach a size 40 head with a -3.5 neck was trialed. The hip was reduced and fluoroscopic images showed anatomic alignment of the implants in acceptable length. The broach was removed. The final size 6.5 high offset Avenir Complete stem was then impacted into place. A ceramic 40 mm head with a -3.5 neck was then impacted onto the stem and the hip was reduced. Final fluoroscopic images showed anatomic alignment of the hip. The capsule was then closed with #1 Vicryl suture. A dilute betadyne lavage was then done for 3 minutes. The joint was then irrigated with normal saline solution. The fascia was closed with #1 PDS suture. Skin was closed with 2-0 Vicryl, jade, and a Silverlon dressing. He was then transferred to a hospital bed and taken to the post anesthesia care unit in stable condition. He tolerated the procedure well. Franco Her PA-C, was present for the entire procedure. He was critical for patient positioning, prepping, draping, retraction exposure, wound closure and application of sterile dressing. I attest to the content of the Intraoperative Record and any orders documented therein. Any exceptions are noted below.
--- NOTE | 2023-09-13 10:50 | Fluoroscopy Report ---
FL hip RT 1V CLINICAL HISTORY: RIGHT ANTERIOR HIP COMPARISON STUDY: Right hip radiograph August 24, 2023. FLUOROSCOPY TIME: 19 seconds. Ka, r: 4.62 mGy FLUOROSCOPIC IMAGES: 1 FINDINGS: Fluoroscopy was provided during anterior total right hip arthroplasty. Hardware is intact. Alignment is anatomic. No unexpected radiopaque foreign bodies. IMPRESSION: Fluoroscopy provided during anterior total right arthroplasty. ACT 112: Negative or not required by law. Electronically signed by: Colby Rahman M.D. 09/13/2023 10:49 AM
--- NOTE | 2023-09-13 11:10 | XRay Report ---
XR hip 1V RT w pelvis CLINICAL HISTORY: IN PACU - Post Surgical TECHNIQUE: 1 view of the right hip and single frontal view of the pelvis were obtained. Comparison: Comparison is made to hip radiographs 01/02/2022 FINDINGS: Patient is status post right total hip arthroplasty with expected postsurgical changes including soft tissue swelling and subcutaneous emphysema. Left hip arthroplasty is unchanged. IMPRESSION: Expected postoperative appearance status post placement of right total hip arthroplasty. ACT 112: Negative or not required by law. Electronically signed by: Chidi Houston M.D. 09/13/2023 11:09 AM
[2023-09-13] MEDS: ePHEDrine sulfate 50 MG/ML AMP IV PRN (11:11)
--- NOTE | 2023-09-13 12:00 | Anesthesiology Progress Note ---
Date of Service September 13, 2023 Anesthesia Post Procedure Vital Signs Vital Signs: Temp Pulse Resp BP Pulse Ox O2 Del Method O2 Flow Rate 09/13/23 11:50 68 15 105/57 L 99 Room Air 09/13/23 11:40 36.4 C L 70 14 101/57 L 94 Room Air 09/13/23 11:30 70 17 103/56 L 96 Room Air 09/13/23 11:20 58 L 18 96/66 L 96 Room Air 09/13/23 11:10 55 L 18 84/53 L 97 Room Air 09/13/23 11:00 36.5 C 58 L 22 94/53 L 95 Room Air 09/13/23 10:50 36.5 C 67 16 93/56 L 09/13/23 10:40 55 L 12 81/57 L 09/13/23 10:30 74 18 103/49 L 09/13/23 10:11 Oxymask 7 09/13/23 07:01 36.6 C 87 20 149/105 H 96 Room Air Pain Intensity Right Hip: Pain Intensity: 0 Transfer of Care Handoff Completed per policy Notes Mental Status: alert / awake / arousable and participated in evaluation Nausea / Vomiting: adequately controlled Pain: adequately controlled Airway Patency, RR, SpO2: stable & adequate BP & HR: stable & adequate Hydration State: stable & adequate Neuraxial Anesthesia: was administered and sensory block is resolving Anesthetic Complications: no major complications apparent and Pt Satisfied with anesthetic care
[2023-09-13] MEDS ORDERED: oxyCODONE HCL IR 5 MG TAB (IMMEDIATE RELEASE) PO PRN (12:37)
[2023-09-13] MEDS ORDERED: HYDROmorphone INJ 0.5 MG/0.5 ML SYR IV PRN (12:37)
[2023-09-13] MEDS ORDERED: traMADol HCL 50 MG TABLET PO PRN (12:37)
[2023-09-13] MEDS ORDERED: METOCLOPRAMIDE HCL INJ 5 MG/ML 2 ML VIAL IV PRN (12:37)
[2023-09-13] MEDS ORDERED: MAGNESIUM HYDROXIDE SUSP 30 ML UDC PO PRN (12:37)
[2023-09-13] MEDS ORDERED: bisacodyL 10 MG SUPP PR PRN (12:37)
[2023-09-13] MEDS ORDERED: NALOXONE HCL 0.4 MG/1 ML VIAL/CARP IV PRN (12:37)
[2023-09-13] MEDS: KETOROLAC TROMETHAMINE 15 MG/ML VIAL IV SCH (13:22)
[2023-09-13] MEDS: SODIUM CHLORIDE 0.9% 1,000 ML IV SCH (13:22)
[2023-09-13] MEDS: ceFAZolin 1000MG 1,000 MG/7.5 ML SYR IV SCH (17:15)
[2023-09-13] MEDS: DOCUSATE SODIUM 100 MG CAP PO SCH (20:15)
[2023-09-13] MEDS: ATORVASTATIN 40 MG TAB PO SCH (20:15)
[2023-09-13] MEDS: SENNA 8.6 MG TAB PO SCH (20:15)
[2023-09-14] MEDS: APIXABAN 5 MG TABLET PO SCH (08:10)
[2023-09-14] MEDS: MULTIVITAMIN TAB PO SCH (08:11)
[2023-09-14] MEDS: dilTIAZem HCL 180 MG CAPCR PO SCH (08:11)
[2023-09-14] MEDS: METOPROLOL SUCC 50MG EXT REL TAB PO SCH (08:11)
[2023-09-14] MEDS: dexAMETHasone 4 MG TAB PO SCH (08:12)
--- NOTE | 2023-09-14 10:22 | Orthopedic Progress Note ---
Date of Service September 14, 2023 Assessment & Plan (1) Status post right hip replacement: Overall, he is doing quite well today with his right hip procedure. He has participated well with physical therapy this morning working on ambulation and range of motion exercises. He was restarted back on his Eliquis for DVT prophylaxis. Due to the continued tachycardia, I have ordered blood work as well as an EKG just to rule out any acute cardiac issues. His pulse was consistently 120-130 while he was in the room with him this morning. I do have a suspicion that since he was having some drainage from the hip and it being postoperative day #1, this may be secondary due to acute blood loss. He also does have a past medical history of atrial fibrillation which could also be a possibility of why he has an increased heart rate today. I have consulted the hospitalist service for medical management and to confirm that he is stable for discharge this morning. Will follow-up after his test come back and evaluation from hospitalist service. Subjective . Rob was seen and evaluated this morning resting comfortably in no apparent distress. He notes that his pain is well-controlled to the right hip. He has been having some drainage from the surgical site in which he states that it has now ceased with the latest dressing change. He has had 2 dressing changes since yesterday. He has worked with physical therapy this morning working on ambulation and range of motion exercises. Prior to this, he was up and ambulating out of bed with no significant issues. Nurse was concerned due to his continued tachycardia this morning. He was statin in the 80s yesterday but is now been consistently over 100 this morning. He is denying any symptoms or chest pain this morning. He denies any other concerns today. Review of Systems All systems reviewed & are unremarkable except as noted in HPI & below. Physical Exam . On physical examination of the right hip, dressings are clean, dry, intact. His leg is out in full extension. He has active plantarflexion dorsiflexion to the right ankle. +2 DP and PT pulses. Less than 2-second capillary refill. Normal sensation. Neurovascular intact. Results & Data Results & Data Laboratory Results . Diagnostic Findings . Postoperative x-rays of the right hip show prosthesis to be in anatomical alignment with no signs of fracture complication or loosening. PG Care Time/CCT Total # of Minutes Spent Total Time Spent with Patient: Total time spent is greater than 50% in coordination of care (as documented) at patient's floor/unit and/or counseling patient: Coding Level of Care Code 61766 Post Operative Follow-Up Diagnoses Status post right hip replacement Z96.641
[2023-09-14 11:05] LABS: Basophils # (auto) 0.02 K/uL (0.00-0.20); Basophils % (auto) 0.1 %; Hematocrit (blood only) 37.9 % (42.0-52.0); Hemoglobin 13.5 g/dl (14.0-18.0); Immature Granulocytes # (auto) 0.08 K/uL (0.01-0.20); Immature Granulocytes % (auto) 0.5 %; Lymphocytes # (auto) 0.97 K/uL (1.20-3.40); Lymphocytes % (auto) 5.7 %; Mean Corpuscular Hemoglobin 31.6 pg (25.0-34.0); Mean Corpuscular Hgb Conc 35.6 g/dL (32.0-36.0); Mean Corpuscular Volume 88.8 fL (80.0-100.0); Mean Platelet Volume 10.6 fL (9.4-12.4); Monocytes # (auto) 1.65 K/uL (0.11-0.59); Monocytes % (auto) 9.7 %; Neutrophils # (auto) 14.26 K/uL (1.40-6.50); Platelet Count 210 K/uL (130-400); RDW Coefficient of Variation 12.6 % (11.5-14.5); Red Blood Count 4.27 M/uL (4.70-6.10); White Blood Count 16.98 K/ul (4.8-10.8)
[2023-09-14 11:28] LABS: Albumin Globulin Ratio 1.8 (0.9-2); Albumin Level 3.9 gm/dl (3.4-5.0); BUN Creatinine Ratio 26.2 (10-20); Bilirubin,Total 0.4 mg/dl (0.2-1.0); Calcium 8.7 mg/dl (8.6-10.3); Creatinine Clr Calc Pharmacy 99.6 ml/min; Est GFR (African American) 85.2 ml/min; Est GFR (Non-African American) 73.5 ml/min; Globulin 2.2 gm/dl (2.5-4.0); Potassium 4.3 mmol/L (3.5-5.1); Total Protein 6.1 gm/dl (6.0-8.3)
--- NOTE | 2023-09-14 11:50 | Hospitalist Consultation ---
Date of Consultation September 14, 2023 Assessment & Plan (1) Status post right hip replacement: VTE/Pain/Bowel management per primary orthopedic team (2) Chronic atrial fibrillation: Continue anticoagulation with Eliquis as long as ok from orthopedic perspective Continue rate control with metoprolol and diltiazem (3) Atrial fibrillation with rapid ventricular response: Rate is usually on the higher side. Suspect worse than usual this morning from mild dehydration and appears to have mostly resolved after LR bolus given Low suspicion of acute GI bleed although he did have some reflux this morning. Given he takes Eliquis recommend aggressively treating this with IV pantoprazole/famotidine now then pantoprazole 40mg PO daily for 1 week. From a medicine stand point he can be discharged at this time. (4) Acute blood loss anemia: Expected post operative drop (5) GERD (gastroesophageal reflux disease): IV pantoprazole and famotidine right now, then PO daily for 1 week History of Present Illness Reason for Consultation: Tachycardia, ?acute blood loss Attending Physician: Nicholas Hensley, DO History of Present Illness Rob Molina is a 63 year old male POD#1 right QUINN. Feeling well post operatively. No chest pain, shortness of breath, palpitations, dizziness. Medicine consulted for tachycardia. Known permanent atrial fibrillation and took his diltiazem and metoprolol this morning. No hemoptysis, hematemesis, melena, hematochezia. Notes feeling acid taste in his mouth this morning but now resolved. Allergies Allergy/AdvReac Type Severity Reaction Status Date / Time No Known Drug Allergies Allergy Verified 09/13/23 07:02 Home Medications Medication Instructions Recorded Confirmed Type apixaban 5 mg tablet (Eliquis) 5 mg PO BID #180 tabs 01/08/23 09/13/23 Rx diltiazem HCl 360 mg 360 mg PO QAM #90 caps 02/23/23 09/13/23 Rx capsule,extended release 24 hr metoprolol succinate 100 mg 100 mg PO QAM #90 tabs 02/23/23 09/13/23 Rx tablet,extended release 24 hr atorvastatin 40 mg tablet 40 mg PO HS 08/25/23 09/13/23 History cefadroxil 500 mg capsule 500 mg PO BID 10 days #20 caps 09/14/23 Rx oxycodone 5 mg tablet 5 mg PO Q6 PRN pain #30 tabs 09/14/23 Rx pantoprazole 40 mg tablet,delayed 40 mg PO DAILY 1 week #7 tabs 09/14/23 Rx release Patient History Medical History Chronic anticoagulation due to atrial fib Chronic atrial fibrillation dx ~[address] Dunlap Dyslipidemia History of cardioversion ~ at [facility] Moderate mitral regurgitation follows with Dr. Dunlap Surgical History History of left hip replacement (2021) Hx of colonoscopy Hx of left inguinal hernia repair Hx of right inguinal hernia repair Family History Other No family history of adverse response to anesthesia Social History Smoking Status: Never smoker Second Hand Exposure: No; Do You Dip or Chew Tobacco: No; Hx Alcohol Use: Yes Hx Substance Use: No Preferred Language: Vincentian Communication Ability: Effective Premium Service Representative Required: No Beliefs That Will Affect Care: None Current Living Situation: Significant Other Feels Safe at Home: Yes Assistive Devices: Cane and Walker Review of Systems Review of Systems: All systems reviewed & are unremarkable except as noted in HPI & below Physical Exam Constitutional: WD/WN, vitals as above ENMT: external ear and nose normal, oropharynx normal Respiratory: normal respiratory effort, lungs clear to auscultation Cardiovascular: Rate/Rhythm: + tachycardic and + irregularly irregular Heart Sounds: no murmur Vessels: no JVD Gastrointestinal (Abdomen): normal bowel sounds, soft, nontender, no hepatosplenomegaly Results & Data Results & Data Vital Signs (Past 12 Hours) Vital Signs Temp Pulse Resp BP Pulse Ox O2 Del Method 09/14/23 07:06 36.6 C 106 H 16 131/80 96 Room Air 09/14/23 02:55 36.6 C 105 H 18 129/88 96 Room Air Laboratory Results Abnormal lab results 09/14/23 Range/Units 10:41 WBC 16.98 H (4.8-10.8) K/ul RBC 4.27 L (4.70-6.10) M/uL Hgb 13.5 L (14.0-18.0) g/dl Hct 37.9 L (42.0-52.0) % Neut # (Auto) 14.26 H (1.40-6.50) K/uL Lymph # (Auto) 0.97 L (1.20-3.40) K/uL Howell # (Auto) 1.65 H (0.11-0.59) K/uL Chloride 109 H (98-107) mmol/L BUN 28 H (6-23) mg/dl BUN/Creatinine Ratio 26.2 H (10-20) Glucose 211 H (70-99(Fasting)) mg/dl Globulin 2.2 L (2.5-4.0) gm/dl PG Care Time/CCT Total # of Minutes Spent Total Time Spent with Patient: Total time spent is greater than 50% in coordination of care (as documented) at patient's floor/unit and/or counseling patient: Coding Level of Care Code 90276 IN/OBS CONSULT LVL 4,60M Diagnoses Status post right hip replacement Z96.641 Chronic atrial fibrillation I48.20 Atrial fibrillation with rapid ventricular response I48.91 Acute blood loss anemia D62 GERD (gastroesophageal reflux disease) K21.9
[2023-09-14] MEDS: LACTATED RINGER'S 1,000 ML IV ONE (12:20)
--- NOTE | 2023-09-14 13:21 | Electrocardiogram Report ---
Test Reason : Blood Pressure : / mmHG Vent. Rate : 116 BPM Atrial Rate : 115 BPM P-R Int : 000 ms QRS Dur : 088 ms QT Int : 318 ms P-R-T Axes : 000 -35 005 degrees QTc Int : 442 ms Atrial fibrillation with rapid ventricular response Left axis deviation Minimal voltage criteria for LVH, may be normal variant Inferior infarct , age undetermined Abnormal ECG When compared with ECG of 30-AUG-2023 08:35, No significant change Confirmed by David Anderson ([id number]) on 09/14/2023 1:21:12 PM Referred By: Nicholas Hensley Confirmed By:David Anderson
[2023-09-14] MEDS: PANTOprazole 40 MG in SYRINGE 0 ML IV ONE (14:51)
[2023-09-14] MEDS: FAMOTIDINE 20MG IV PUSH 20 MG/5 ML SYR IV ONE (14:52)
--- NOTE | 2023-09-15 12:34 | Discharge Summary ---
Date of Service September 14, 2023 Principal Diagnosis Same as "Discharge Diagnosis" noted below under Discharge Instructions. Discharge Exam . On physical examination of the right hip, dressings are clean, dry, intact. His leg is out in full extension. He has active plantarflexion dorsiflexion to the right ankle. +2 DP and PT pulses. Less than 2-second capillary refill. Normal sensation. Neurovascular intact. Discharge Data Consultations 09/14/23 10:03 Consult Hospitalist Routine Procedures Performed Operation Date: 09/13/23 08:10 Actual Procedures p Right Anterior Total Hip Arthroplasty(Right) - Nicholas Hensley DO Ordered Studies 09/13/23 08:10 FL hip RT 1V Routine Hospital Course (1) Status post right hip replacement: On September 13, 2023 Rob arrived at [facility] and underwent a right anterior total hip arthroplasty performed by Dr. Hensley with no complications. He had a spinal anesthetic. Postoperatively, he was transferred to the PACU for immediate postoperative management and then transferred to the general orthopedic floor in stable condition. On postoperative day #1, his vital signs were slightly higher. He was having some tachycardia that was ranging in about 100-130 at the highest beats per minute pulse. Hospitalist was consulted for medical management. He does have chronic atrial fibrillation but his rate is normally below 100. After the medical team gave him a lactated Ringer's bolus, his rate was much better controlled which they feel that it may be because he was dehydrated in the morning. He was also having some reflux in the morning in which they treated this with IV pantoprazole/famotidine and sent him a prescription for oral pantoprazole 40mg PO daily for 1 week. From that point, from a medical standpoint they cleared him for discharge. He was restarted on his Eliquis for DVT prophylaxis. He participated well with physical therapy working on ambulation and range of motion exercises. He was then discharged home in stable condition. He will follow-up with orthopedics in 2 weeks for postoperative management. PG Care Time/CCT Total # of Minutes Spent Total Time Spent with Patient: Total time spent is greater than 50% in coordination of care (as documented) at patient's floor/unit and/or counseling patient: Discharge Plan Discharge Items Patient Disposition: Home - Home Health Services Reason For Visit: Degenerative Joint Disease Right Hip Discharge Diagnosis: Same Activity: Per Instructions section Non-emergency contact: Surgeon Call non-emergency contact if: your temperature is above 101.5, your wound has increased redness, your wound has increased drainage and your wound pain has increased Follow-up/Referrals: Tyrese Gabriel, [Primary Care Provider] - Diet: Regular Addtl Attending Provider Instructions: Activity and Therapy Recommendations: * If you are using [facility] then therapy will be provided at your home until they feel you have accomplished all of your goals. * If you are using [facility] then Physical Therapy will be provided until they feel you are ready to start Outpatient Physical Therapy. * If you are not using home therapy then Outpatient Physical Therapy should start about 3-5 days from your day of surgery. Therapy will last about 6-10 weeks * You were shown a series of exercises in the hospital. Do these exercises three times each day including the exercises you were shown in physical therapy. * Get up and walk several times each day.~ For the first four weeks, try not to stand or walk for more than one hour at a time. If you do stand or walk for more than one hour, you will not hurt anything, but your leg will likely swell.~~ * As you feel comfortable, you may change from the walker or crutches to a cane and~then to independent walking. Medications: * Narcotic You will likely be sent home from the hospital with a prescription for the narcotic pain medication that worked best throughout your stay. * Cefadroxil -take the antibiotic twice a day for 10 days to help prevent infection. * Eliquis- Continue as prescribed. * Other medications may be prescribed for specific circumstances. If you have any questions, please call the office at . * Resume previous home medications unless otherwise instructed TEDs/Elastic Stockings: The white elastic stockings help limit swelling and prevent blood clots from forming in your legs. The more you wear them, the more they work. Wear them for six weeks. Dressing Care: Leave the Silverlon dressing in place for 7 days. After 7 days you may remove the dressing. If the incision is not draining then you may leave the jade open to air. If there is a little bit of drainage or if the jade are getting stuck on your clothing then cover the incision with a dry dressing. The jade will be removed at your 2 week follow-up appointment. Showering: You may shower with the Silverlon dressing in place. Do not let the shower spray hit the dressing directly. Pat the Silverlon dressing dry. If the dressing becomes wet underneath, then simply remove the dressing. Keep the incision dry until you are 7 days out from the day of surgery. After 7 days you may remove the Silverlon dressing and shower with the jade exposed. Let soapy water run over the jade and pat them dry. Do not scrub or soak the incision. Things To Watch For: * Drainage from the incision site that occurs more than one week after your surgery. * Increased redness at the incision site. * Fever above 102 degrees Fahrenheit. * Unusual chest pain or shortness of breath. * Call [facility] at with any of the above problems Follow-Up Visit: Follow-up with Dr. Hensley's PA (Nicholas Diane) 2-3 weeks after your day of surgery. He will remove your jade and answer any questions. If you have any additional questions or concerns, Dr Hensley is usually in the office at the same time and will be available An appointment was probably scheduled when you signed-up for surgery in the office. If you have any questions call Office Instructions: More detailed instructions as well as Frequently Asked Questions were provided in a folder by our office when you signed-up for surgery. Please review these instructions when you get home. If you have any further questions or concerns, please feel free to call the office at [phone] Addtl Automotive Service Writer Provider Instructions: Medicine consult for tachycardia: Continue to keep well hydrated Due to GERD pantoprazole and famotidine were given as inpatient. Recommend co ntinuing on pantoprazole 40mg daily for 1 week and following up with your primary care provider for ongoing recommendation. If having chest pain, shortness of breath, worsening abdominal pain or black stool recommend returning to the ER in an emergency or having your primary care provider repeat hemoglobin. Hemoglobin 13.5 on discharge. Pending Studies at Discharge: No Stand-Alone Forms: [facility], Pain - Opioid Pain Management, Smoking Cessation Medications and DC Order Prescriptions: New cefadroxil 500 mg capsule 500 mg PO BID 10 Days Qty: 20 0RF oxycodone 5 mg Tablet 5 mg PO Q6 PRN (Reason: pain) Qty: 30 0RF pantoprazole 40 mg tablet,delayed release (DR/EC) 40 mg PO DAILY 7 Days Qty: 7 0RF Continued Eliquis 5 mg tablet 5 mg PO BID Qty: 180 3RF diltiazem HCl 360 mg capsule,extended release 24hr 360 mg PO QAM Qty: 90 3RF metoprolol succinate 100 mg tablet extended release 24 hr 100 mg PO QAM Qty: 90 3RF atorvastatin 40 mg Tablet 40 mg PO HS Krames/Other Patient Handouts: Hip Arthroscopy: After Surgery, Hip Precautions Admission Data Admit Date/Time: 09/13/23 10:20 Attending Provider: Nicholas Hensley Admit Provider: Nicholas Hensley Primary Care Provider: Tyrese Gabriel Other Providers: Robbin Santa; Mirtha Barrow; Joe Roe; Hima Reyes; Chico Calderon; Oziel Apple; Cheryl Stroud; Lilian Solis; Barbara Hanson; Raymond Loco; James Brink; Gabriela Rudolph; Domenico Galarza; Joe Quintana; Chandler Groves; Sandra Lai; Jojo Gutierrez; Jojo Espinoza; Everardo Mondragon; Nannette Graham; Yaakov Zheng; Bruce Nunez; Celeste De Souza; Daniella Choe; Julianne Gillespie; Josesito Plaza; Minh Cruz; Hima Anthony; Chico Jim; Nancy Patton Other Interventions: Discharge Summary Assessment (RN) Last Done: 09/14/23 15:04
== END 2023-09-14 15:58 | disposition home health service (06) ==
LOC: 3E 06:40 → ASU 06:40
DX: M16.11 Unilateral primary osteoarthritis, right hip; I48.91 Unspecified atrial fibrillation; G47.33 Obstructive sleep apnea (adult) (pediatric); Z79.01 Long term (current) use of anticoagulants; Z79.899 Other long term (current) drug therapy